=== PATIENT | female | born 1970 | race Caucasian/White ===

== ENCOUNTER 2020-11-10 11:46 | Emergency (ER) | payer BC, SELFPAY ==
--- NOTE | 2020-11-10 12:48 | ED_ITS ---
[facility] [place] Disposition Referrals: PCP,No [Primary Care Provider] - [facility] HPI - General Stated complaint: sinus problem - Related Data Home Medications Medication Instructions Recorded Confirmed paroxetine HCl 10 mg tablet 10 mg PO DAILY tab 04/20/18 08/25/18 cetirizine 10 mg tablet 10 mg PO DAILY 06/30/18 08/25/18 montelukast 10 mg tablet PO 30 Days #30 06/30/18 08/25/18 Allergies Allergy/AdvReac Type Severity Reaction Status Date / Time No Known Allergies Allergy Verified 08/25/18 15:51 [facility] History - Hepatitis A Screen Attestation statement:: This patient has been screened for Hepatitis A risk factors. 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: Reports:: Depression, Hypertension Other Surgeries: Yes: Cholecystectomy Amputation: No Fractures: No - Social History Smoking Status: Never smoker Alcohol Intake: never Substance Use Type: denies use Occupational Status: employed - Psychiatric History Pschychiatric History:: Reports:: Depression Family Hx:: Coronary Artery Disease
[2020-11-10 13:04] VITALS: BP 126/79; PULSE 89; RESP 18; TEMP 36.7; O2SAT 98; BMI 35.2
--- NOTE | 2020-11-10 13:11 | HMH.EDUTC ---
[facility] [place] Disposition Clinical Impression: Sinusitis Qualifiers: Sinusitis location: unspecified location Chronicity: acute Recurrence: non-recurrent Qualified Code(s): J01.90 - Acute sinusitis, unspecified Disposition: Home, Self-Care Condition on Discharge: Good Instructions: Sinusitis, DI for Sinusitis Additional Instructions: Drink plenty of fluids. Take tylenol for pain or fever. Take the medications as directed. Follow up with your regular doctor. GO TO THE ER FOR ANY WORSENING SYMPTOMS Prescriptions: predniSONE [Prednisone 20mg Tab] 20 mg PO BID 4 Days #8 tab Transmission Status: Received by [id number] Azithromycin [Z-Todd 250mg Tab*] 250 mg PO UD DOSE PK #6 tab Transmission Status: Received by [id number] Referrals: PCP,No [Primary Care Provider] - Time of Disposition: 13:13 Medical Decision Making - Medical Records Medical records reviewed: No: I reviewed the patient's medical records. - Isaias Inquiry Pt receiving controlled substance: No Vital Signs: 11/10/20 13:04 11/10/20 13:17 Temperature 98.1 F 98.1 F Temperature Source Oral Pulse Rate 89 Pulse Rate [Left] 89 Respiratory Rate 18 18 Blood Pressure 126/79 Blood Pressure [Right Arm] 126/79 Blood Pressure Mean [Right Arm] 94 Blood Pressure Source [Right Arm] Manual Cuff/ Doppler Blood Pressure Position [Right Arm] Sitting 02 Sat by Pulse Oximetry 98 Oxygen Delivery Method Room Air [facility] [place] HPI - General Stated complaint: sinus problem Time Seen by Provider: 11/10/20 13:11 Mode of Arrival: Ambulatory Source of Information: Patient Limitations: No Limitations Description of Symptoms (Recalled from Triage Doc. by RN): stuffy nose, congested x 2 days HEENT Symptoms (Recalled from RN notes): No Resp Symptoms (Recalled from RN notes): Yes Skin Symptoms (Recalled from RN notes): No MS Symptoms (Recalled from RN notes): No Functional Status (Recalled from RN notes): wnl - History of Present Illness Provider Complaint: She states that for the past 1 week she has had sinus congestion. She has a history of getting sinus infections kind of frequently. She denies any fever/chills/body aches. She denies a cough and chest congestion. - Related Data Home Medications Medication Instructions Recorded Confirmed paroxetine HCl 10 mg tablet 10 mg PO DAILY tab 04/20/18 08/25/18 cetirizine 10 mg tablet 10 mg PO DAILY 06/30/18 08/25/18 montelukast 10 mg tablet PO 30 Days #30 06/30/18 08/25/18 Previous Rx's Medication Instructions Recorded Azithromycin [Z-Todd 250mg Tab*] 250 mg PO UD DOSE PK #6 tab 11/10/20 predniSONE [Prednisone 20mg 20 mg PO BID 4 Days #8 tab 11/10/20 Tab] Allergies Allergy/AdvReac Type Severity Reaction Status Date / Time No Known Allergies Allergy Verified 11/10/20 13:08 - Worker's Comp Is this a Worker's Comp case?: No Is this an [facility] Worker's Comp?: No Is this a [place] Worker's Comp?: No [facility] History - Hepatitis A Screen Drug use history?: No High risk sexual behaviors?: No History of sexually transmitted infection?: No Currently employed?: No Childcare worker?: No Do you have indoor plumbing?: Yes Do you have electricity?: Yes Attestation statement:: This patient has been screened for Hepatitis A risk factors. I have reviewed the patient's past medical history: Yes 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: Reports:: Depression, Hypertension Other Surgeries: Yes: Cholecystectomy Amputation: No Fractures: No - Social History Smoking Status: Never smoker Alcohol Intake: never Substance Use Type: denies use Occupational Status: employed - Psychiatric History Pschychiatric History:: Reports:: Depression Family Hx:: Coronary Artery Disease ROS Obtained: Yes All systems reviewed & no additional complaints - Constitutional Constitutional: Reports system reviewed and no additional complaints, except as docu - Eyes Eyes: Reports system reviewed and no additional
[2020-11-10 13:17] VITALS: BP 126/79; PULSE 89; RESP 18; TEMP 36.7; O2SAT 98
== END 2020-11-10 13:18 | disposition home or self-care (01) ==
PROVIDERS: Emergency Provider Nurse Practitioner Family; PCP Nurse Practitioner
DX: J01.90 Acute sinusitis, unspecified (principal); I10 Essential (primary) hypertension; F33.1 Major depressive disorder, recurrent, moderate; Z79.899 Other long term (current) drug therapy
CPT/HCPCS: 99201

== ENCOUNTER → 2022-05-03 14:51 | Outpatient (POV) | payer BC, SELFPAY | PROVIDERS: Visit Provider Dermatology | DX: Z00.00 Encounter for general adult medical examination without abnormal findings (principal) ==

== ENCOUNTER 2022-05-27 16:36 | Emergency (ER) | payer BC, SELFPAY ==
[2022-05-27 16:58] VITALS: BP 147/88; PULSE 104; RESP 16; TEMP 36.9; O2SAT 96; BMI 36.0
--- NOTE | 2022-05-27 17:06 | HMH.EDUTC ---
[facility] [place] Disposition Clinical Impression: Strep throat Disposition: Home, Self-Care Condition on Discharge: Good Instructions: Strep Throat, DI for Strep Throat Additional Instructions: Drink plenty of fluids. Take tylenol or ibuprofen for pain or fever. Take the medications as directed. Follow up with your regular doctor. GO TO THE ER FOR ANY WORSENING SYMPTOMS Throw your tooth brush away and get a new one. Prescriptions: Benzonatate [Benzonatate 100mg cap] 100 mg PO TIDP PRN #30 cap PRN Reason: Cough Transmission Status: Received by [id number] Cefdinir [Omnicef 300mg Capsule] 300 mg PO BID #20 cap Transmission Status: Received by [id number] predniSONE [Prednisone 20mg Tab] 20 mg PO BID 3 Days #6 tab Transmission Status: [id number] Referrals: Naima Charles APRN [Primary Care Provider] - Time of Disposition: 17:26 Medical Decision Making - Medical Records Medical records reviewed: No: I reviewed the patient's medical records. - Isaias Inquiry Pt receiving controlled substance: No Vital Signs: 05/27/22 16:58 05/27/22 17:27 Temperature 98.4 F 98.4 F Temperature Source Oral Pulse Rate 104 H Pulse Rate [Right Radial] 104 H Respiratory Rate 16 16 Blood Pressure 147/88 H Blood Pressure [Right Arm] 147/88 H Blood Pressure Mean [Right Arm] 107 Blood Pressure Source [Right Arm] Automatic Cuff Blood Pressure Position [Right Arm] Sitting 02 Sat by Pulse Oximetry 96 Oxygen Delivery Method Room Air - Lab Data Lab results reviewed: Yes: I reviewed the patient's lab results. Lab Results 05/27/22 17:00: Strep Scn Rapid Clinic Positive A [facility] [place] HPI - General Stated complaint: stuffy, allergies Time Seen by Provider: 05/27/22 17:06 Mode of Arrival: Ambulatory Source of Information: Patient Limitations: No Limitations Description of Symptoms (Recalled from Triage Doc. by RN): Pt reports she is stuffy , feels like its a little hard to swallow, sore throat. HEENT Symptoms (Recalled from RN notes): Yes (nasal congestion, sore throat) Resp Symptoms (Recalled from RN notes): No Skin Symptoms (Recalled from RN notes): No MS Symptoms (Recalled from RN notes): No Functional Status (Recalled from RN notes): n/a - History of Present Illness Provider Complaint: She c/o sore throat, chills, body aches and feeling bad for the past 2 days. - Related Data Home Medications Medication Instructions Recorded Confirmed paroxetine HCl 10 mg tablet 10 mg PO DAILY tab 04/20/18 10/03/21 cetirizine 10 mg tablet 10 mg PO DAILY 06/30/18 10/03/21 montelukast 10 mg tablet PO 30 Days #30 06/30/18 10/03/21 estradiol 0.1 mg/24 hr semiweekly 1 patch TRANSDERMA each 10/03/21 10/03/21 transdermal patch progesterone micronized 100 mg 100 mg PO cap 10/03/21 10/03/21 capsule Previous Rx's Medication Instructions Recorded Benzonatate [Benzonatate 100mg 100 mg PO TIDP PRN #30 cap 05/27/22 cap] Cefdinir [Omnicef 300mg Capsule] 300 mg PO BID #20 cap 05/27/22 predniSONE [Prednisone 20mg 20 mg PO BID 3 Days #6 tab 05/27/22 Tab] Allergies Allergy/AdvReac Type Severity Reaction Status Date / Time No Known Allergies Allergy Verified 10/03/21 15:21 - Worker's Comp Is this a Worker's Comp case?: No [facility] History - Hepatitis A Screen Attestation statement:: This patient has been screened for Hepatitis A risk factors. I have reviewed the patient's past medical history: Yes 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: Reports:: Depression, Hypertension Other Surgeries: Yes: Cholecystectomy, Colonoscopy Amputation: No Fractures: No - Social History Smoking Status: Never smoker Alcohol Intake: never Substance Use Type: denies use Occupational Status: employed - Psychiatric History Pschychiatric History:: Reports:: Depression Family Hx:: Coronary Artery Disease ROS Obtained: Yes All systems reviewed & no additional complaints -
[2022-05-27 17:09] LABS: UTC Strep Screen (Rapid) Positive (Negative)
[2022-05-27 17:27] VITALS: BP 147/88; PULSE 104; RESP 16; TEMP 36.9
== END 2022-05-27 17:40 | disposition home or self-care (01) ==
PROVIDERS: Emergency Provider Nurse Practitioner Family; PCP Nurse Practitioner
DX: J02.0 Streptococcal pharyngitis (principal)
CPT/HCPCS: 87880; 99212; C9803; G0463; U0003; U0005

== ENCOUNTER 2022-10-07 09:28 | Emergency (ER) | payer BC, SELFPAY ==
[2022-10-07 11:40] VITALS: BP 131/69; PULSE 73; RESP 20; TEMP 36.7; O2SAT 98; BMI 35.0
--- NOTE | 2022-10-07 11:49 | EXP.UTC ---
Discharge Plan Disposition Patient Disposition: Home, Self-Care Condition: Good Prescriptions Prescriptions: New azithromycin [Zithromax] 250 mg tablet 250 mg PO UD DOSE PK Qty: 6 0RF Rx Instructions: Take two (2) tablets today, then one (1) tablet days #2 thru #5 benzonatate [benzonatate] 100 mg capsule 100 mg PO TIDP PRN (Reason: Cough) Qty: 30 0RF methylprednisolone 4 mg Tablets,Dose Pack 4 mg PO DIRECTED Qty: 21 0RF No Action paroxetine HCl [Paxil] 10 mg tablet 10 mg PO DAILY montelukast 10 mg tablet PO 30 Days Qty: 30 cetirizine [Zyrtec] 10 mg tablet 10 mg PO DAILY progesterone micronized 100 mg capsule 100 mg PO estradiol 0.1 mg/24 hr patch semiweekly 1 patch TRANSDERMA prednisone 20 MG tablet 20 mg PO BID 3 Days Qty: 6 0RF cefdinir 300 MG capsule 300 mg PO BID Qty: 20 0RF benzonatate 100 MG capsule 100 mg PO TIDP PRN (Reason: Cough) Qty: 30 0RF Referrals Follow up/Referrals: Preethi Melendrez PA [Primary Care Provider] - See instructions Activity Restrictions/Add. Instructions Additional Instructions/Restrictions: Drink plenty of fluids. Take tylenol or ibuprofen for pain or fever. Take the medications as directed. Follow up with your regular doctor. GO TO THE ER FOR ANY WORSENING SYMPTOMS Clinical Impressions Clinical Impression: Bronchitis, Sinusitis Instructions Patient Instructions: Sinusitis, DI for Sinusitis Discharge ED Provider: Elvis Kc [facility] [place] HPI General Stated complaint: congestion Time Seen by Provider: 10/07/22 11:49 History of Present Illness Provider Complaint: She states that she has had cough, chills, sore throat, and sinus congestion for the past 2 days, Related Data Home Medications Medication Instructions Recorded Confirmed paroxetine HCl 10 mg tablet (Paxil) 10 mg PO DAILY 04/20/18 10/03/21 cetirizine 10 mg tablet (Zyrtec) 10 mg PO DAILY 06/30/18 10/03/21 montelukast 10 mg tablet PO 30 days ##30 06/30/18 10/03/21 estradiol 0.1 mg/24 hr semiweekly 1 patch transdermal 10/03/21 10/03/21 transdermal patch progesterone micronized 100 mg 100 mg PO 10/03/21 10/03/21 capsule Previous Rx's Medication Instructions Recorded benzonatate 100 mg capsule 100 mg PO TIDP PRN Cough #30 caps 05/27/22 cefdinir 300 mg capsule 300 mg PO BID #20 caps 05/27/22 prednisone 20 mg tablet 20 mg PO BID 3 days #6 tabs 05/27/22 azithromycin 250 mg tablet 250 mg PO UD DOSE PK #6 tabs 10/07/22 (Zithromax) benzonatate 100 mg capsule 100 mg PO TIDP PRN Cough #30 caps 10/07/22 methylprednisolone 4 mg tablets in 4 mg PO DIRECTED #21 tabs 10/07/22 a dose pack Allergies Allergy/AdvReac Type Severity Reaction Status Date / Time No Known Allergies Allergy Verified 10/03/21 15:21 [facility] PFS 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 (Updated 10/07/22 @ 11:57 by Elvis Kc APRN) Anxiety Hyperlipidemia Urinary tract infection Surgical History (Updated 10/07/22 @ 11:49 by Smiley Villar RN) History of cholecystectomy Social History (Updated 10/07/22 @ 11:49 by Smiley Villar RN) Smoking Status: Never smoker second hand exposure: No alcohol intake: never substance use type: denies use current occupational status: employed Travel in the last 8 weeks: None ROS Obtained: Yes All systems reviewed & no additional complaints except as documented Constitutional Constitutional: Reports chills and Reports fever(s) Eyes Eyes: Denies eye discharge ENT Ears, Nose, Mouth, and Throat: Reports as per HPI Cardiovascular Cardiovascular: Denies chest pain Respiratory Respiratory: Denies chest congestion and Reports cough Gastrointestinal Gastrointestingal: Reports nausea; Denies abdominal pain, constipation, cramping, diarrhea or vomiting Musculoskeletal Musculoskeletal: Denies arthralgias Integumentary/Breasts Skin/Breast: Denies rash Neurologic Neurologic: Denies paresthesias
[2022-10-07 11:50] VITALS: BP 131/69; PULSE 73; RESP 20; TEMP 36.7; O2SAT 98
[2022-10-07 12:09] LABS: Adenovirus,PCR Not Detected (NotDetected); Bordetella Pertussis Not Detected (NotDetected); Chlamydophila Pneumoniae, PCR Not Detected (NotDetected); Coronavirus 19, PCR Not Detected (NotDetected); Coronavirus 229E Not Detected (NotDetected); Coronavirus NL63 Not Detected (NotDetected); Coronavirus OC43 Not Detected (NotDetected); Coronovirus HKU1,PCR Not Detected (NotDetected); Human Metapneumovirus Not Detected (NotDetected); Influenza A, PCR Not Detected (NotDetected); Influenza AH1, 2009 Not Detected (NotDetected); Influenza AH1, PCR Not Detected (NotDetected); Influenza AH3,PCR Not Detected (NotDetected); Influenza B, PCR Not Detected (NotDetected); Mycoplasma Pneumoniae, PCR Not Detected (NotDetected); Parainfluenza 1, PCR Not Detected (NotDetected); Parainfluenza 2, PCR Not Detected (NotDetected); Parainfluenza 3, PCR Not Detected (NotDetected); Parainfluenza 4, PCR Not Detected (NotDetected); Respiratory Syncytial Virus Not Detected (NotDetected); Rhinovirus/Enterovirus Not Detected (NotDetected)
== END 2022-10-07 12:02 | disposition home or self-care (01) ==
PROVIDERS: Emergency Provider Nurse Practitioner Family; PCP Physician Assistant
DX: J40 Bronchitis, not specified as acute or chronic (principal); F32.9 Major depressive disorder, single episode, unspecified
CPT/HCPCS: 87581; 87632; 87798; 99212; C9803; G0463; U0003; U0005

== ENCOUNTER → 2023-05-15 11:34 | Outpatient (CLI) | payer BC, SELFPAY ==
[2023-05-15 12:05] LABS: Glucose,Random 117 mg/dL (74-100)
[2023-05-15 12:07] LABS: Hemoglobin A1C 5.8 % (4.0-6.0)
== END ==
PROVIDERS: PCP Physician Assistant; Visit Provider Physician Assistant
DX: R73.9 Hyperglycemia, unspecified (principal)
CPT/HCPCS: 36415; 82947; 83036

== ENCOUNTER 2023-09-16 12:54 | Emergency (ER) | payer BC, SELFPAY ==
[2023-09-16 13:00] VITALS: BP 120/74; PULSE 61; RESP 19; TEMP 37.2; O2SAT 98; BMI 34.7
--- NOTE | 2023-09-16 13:11 | EXP.UTC ---
Discharge Plan Disposition Patient Disposition: Home, Self-Care Condition: Good Prescriptions Prescriptions: No Action paroxetine HCl [Paxil] 10 mg tablet 10 mg PO DAILY montelukast 10 mg tablet PO 30 Days Qty: 30 cetirizine [Zyrtec] 10 mg tablet 10 mg PO DAILY progesterone micronized 100 mg capsule 100 mg PO estradiol 0.1 mg/24 hr patch semiweekly 1 patch TRANSDERMA prednisone 20 MG tablet 20 mg PO BID 3 Days Qty: 6 0RF cefdinir 300 MG capsule 300 mg PO BID Qty: 20 0RF benzonatate 100 MG capsule 100 mg PO TIDP PRN (Reason: Cough) Qty: 30 0RF azithromycin [Zithromax] 250 mg tablet 250 mg PO UD DOSE PK Qty: 6 0RF Rx Instructions: Take two (2) tablets today, then one (1) tablet days #2 thru #5 benzonatate [benzonatate] 100 mg capsule 100 mg PO TIDP PRN (Reason: Cough) Qty: 30 0RF methylprednisolone 4 mg Tablets,Dose Pack 4 mg PO DIRECTED Qty: 21 0RF Referrals Follow up/Referrals: Preethi Melendrez PA [Primary Care Provider] - See instructions Activity Restrictions/Add. Instructions Additional Instructions/Restrictions: restart eye dops if worsen return Clinical Impressions Clinical Impression: Eye redness Instructions Patient Instructions: DI for Eye Allergic Reaction Discharge ED Provider: Triny ([facility] [place] HPI General Stated complaint: left eye redness Mode of Arrival: Ambulatory Source of Information: Patient Limitations: No Limitations Time Seen by Provider: 09/16/23 13:11 HEENT Symptoms (Recalled from RN notes): Yes Resp Symptoms (Recalled from RN notes): No Skin Symptoms (Recalled from RN notes): No GI/ Symptoms (Recalled from RN notes): No MS Symptoms (Recalled from RN notes): No Card Symptoms (Recalled from RN notes): No Other (Recalled from RN notes): No History of Present Illness Provider Complaint: 52 yr old female presents for rt eye redness, pt states no drainage. pt states she thinks she got makeup in it a couple days ago. pt states she wants it checked because she is going to be around kids today Related Data Home Medications Medication Instructions Recorded Confirmed paroxetine HCl 10 mg tablet (Paxil) 10 mg PO DAILY 04/20/18 10/03/21 cetirizine 10 mg tablet (Zyrtec) 10 mg PO DAILY 06/30/18 10/03/21 montelukast 10 mg tablet PO 30 days ##30 06/30/18 10/03/21 estradiol 0.1 mg/24 hr semiweekly 1 patch transdermal 10/03/21 10/03/21 transdermal patch progesterone micronized 100 mg 100 mg PO 10/03/21 10/03/21 capsule Previous Rx's Medication Instructions Recorded benzonatate 100 mg capsule 100 mg PO TIDP PRN Cough #30 caps 05/27/22 cefdinir 300 mg capsule 300 mg PO BID #20 caps 05/27/22 prednisone 20 mg tablet 20 mg PO BID 3 days #6 tabs 05/27/22 azithromycin 250 mg tablet 250 mg PO UD DOSE PK #6 tabs 10/07/22 (Zithromax) benzonatate 100 mg capsule 100 mg PO TIDP PRN Cough #30 caps 10/07/22 methylprednisolone 4 mg tablets in 4 mg PO DIRECTED #21 tabs 10/07/22 a dose pack Allergies Allergy/AdvReac Type Severity Reaction Status Date / Time No Known Allergies Allergy Verified 09/16/23 13:15 [facility] Disclaimer: The information contained in this section may have been updated after the patient was seen, as this information can be updated by other users. 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
[2023-09-16 13:19] VITALS: BP 120/74; PULSE 61; RESP 19; TEMP 37.2; O2SAT 98
== END 2023-09-16 13:19 | disposition home or self-care (01) ==
PROVIDERS: Emergency Provider Nurse Practitioner Family; PCP Physician Assistant
DX: H57.89 Other specified disorders of eye and adnexa (principal); E78.5 Hyperlipidemia, unspecified; F41.9 Anxiety disorder, unspecified
CPT/HCPCS: 99212; 99213; 99214; G0463

== ENCOUNTER 2024-01-11 14:00 | Outpatient (RCR) | payer BC, SELFPAY ==
--- NOTE | 2023-12-04 12:14 | HMH.PTOPEV ---
PT Outpatient Evaluation Rehab PT Outpatient Evaluation Start: 12/04/23 10:54 Freq: Status: Active Protocol: Document 12/04/23 10:54 MARY LOU (Rec: 12/04/23 12:14 MARY LOU [id number]) E-signed By Danica Oseguera, PT Outpatient Therapy Subjective History Subjective History Pt is a 52 y/o female who reports onset of left-sided low back pain in mid September of 2023. Pt states I lugged a heavy load of shingles several times and moved a big ladder. Pt reports she initially tried resting and using ice/heat for a few days without improvement in symptoms. Pt states she then went on a cruise and got Covid -19 which delayed her seeing a doctor regarding LBP. Pt reports she went to the chiropractor a couple times which provided temporary relief. Pt denies having recent imaging of the low back or hips. Pt reports she was given stretches by the chiropractor which seemed to causes pins/neeedles sensations along her central low back that was brief in nature. Pt denies LE symptoms, b/b dysfunction or numbness/ tingling currently. Pt reports her doctor also gave her a few simple exercises which she states feels good during but make pain worse the next 2 days. Pt reports she was prescribed muscle relaxers she takes occasionally which seem to help with pain. Pt reports pain is centralized to the left low back and often feels tight into her mid back and into her hip. Pt reports pain is aggravated by prolonged sitting, driving and bending/ lifting. Pt reports tightness of the hips and central low back. 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: Hyperlipidemia, sinus/allergy, abdominal hernia, gall bladder problems New diagnosis of cancer in past 12 No months? Chief Complaint Pain Symptom Type Ache,Dull,Burning Symptoms Relieved By Heat,Ice,OTC Meds Symptoms Aggravated By Sitting,Bending/Stooping Prior Functional Limitations None Current Functional Limitations Lifting,Driving,Sitting, Squatting,Bending/Stooping Symptom Description Intermittent Level of pain today (0-10) 4 Pain scale - at its best (0-10) 0 Pain scale - at its worst (0-10) 7 Lumbopelvic Eval Posture Thoracic Spine Posture Standing Position Neutral Lumbar Spine Posture Standing Position Increased Lordosis Palapation tenderness left lumbar spinal tenderness Yes paraspinal tenderness Yes Lumbar/Sacral Palpation Findings Tenderness Accessory Movement L-spine Vertebrae Accessory Movements Central P/A [place] that Elicit Symptoms L2 bilateral L3 bilateral L4 bilateral L5 bilateral S1 bilateral Range of Motion Lumbar Spine Active Flexion Range of 90 Motion (degrees) Lumbar Spine Active Extension Range of 10 Motion (degrees) Left Lumbar Spine Lateral Flexion Active 15 Range of Motion (degrees) Right Lumbar Spine Lateral Flexion 10 Active Range of Motion (degrees) Manual Muscle Test Left Knee Extension Strength Grade 5 Normal Knee Flexion Strength Grade 5 Normal Hip Flexion Strength Grade 4 Good Hip Abduction Strength Grade 4 Good Hip Adduction Strength Grade 4 Good Hip Extension Strength Grade 4- Good- Gastronemius/Soleus Strength Grade 5 Normal Altered Sensation Bilateral Comment equal and intact to light touch sensation Special Tests Hip Toby (VERA) Test Negative Left Hip Piriformis Test Negative Left Sciatic Nerve Tension Test Negative Left Unilateral Straight Leg Raise (Lasegue) Negative Left Test Sacroiliac Joint Compression Test Negative Left Sacroiliac Joint Distraction Test Negative Left Hip/Knee Eval ROM left Hip External Rotation Active Range of 45 Motion (degrees) Hip Internal Rotation Active Range of 45 Motion (degrees) Oswestry Index Section 1 Pain Intensity The pain comes and goes and is moderate Section 2 Personal Care (Washing,Dresing) increase the pain, but I manage not to change my way of doing it Section 3 Lifting lifting heavy weights off the floor, but I can manage light to medium Section 4 Walking I have some pain when walking but it does not increase with distance Section 5 Sitting Pain prevents me from sitting for more than 1/2 hour Section 6 Standing I have some pain on standing, but it does not increase with time Section 7 Sleeping I get pain in bed, but it does not prevent me from sleeping well Section 8 Social Life Pain has restricted my social life and I do not go out often Section 9 Traveling Pain restricts me to short necessary journeys under 30 minutes Section 10 Changing Degreee of Pain My pain seems to be getting better, but improvement is slow Score and Risk Level Oswestry Sc 23 Oswestry Risk Level Moderate Disability Outpatient Therapy Assessment Impairments Problems/Impairmments Palpation Tenderness,Impaired Range of Motion,Impaired Strength,Impaired Lifting, Impaired Household Care, Impaired Bending,Subjective C/ O Pain,Impaired Self Care/Self Management Prognosis Rehab Potential Good Clinical Impression Consistent with Diagnosis Yes Short Term Goals Number of Weeks 3 Decrease Subjective C/O Pain Yes: Improve pain at worst to 5/10 to improve overall QOL Improve Self Care/Self Management Yes Patient to be Ind w/ HEP Yes Steam Blocker Goals Number of Weeks 6 Increase Range of Motion Yes: Improve lumbar ext and LF AROM to 20 Increase Strength Yes: Improve hip strength to 4 +-5/5 grossly to assist with function Restore Ability to Lift Objects to Waist Yes: 15# with proper mechanics Level to assist with ADLs/prevent re-injury Improve Oswestry Score Yes: Improve score to 15 to improve overall QOL Decrease Subjective C/O Pain Yes: Improve pain at worst to 3/10 to improve overall QOL Outpatient Therapy Plan of Care Treatment Plan May Include Therapeutic Exercise Including Home Yes Exercise Program Manual Therapy Techniques Yes Neuromuscular Re-education Yes Therapeutic Activities to Return to Yes Previous Functional/Work Level ADL/Self Care Education Yes Mechanical Traction Yes Dry Needling Yes Thermal Modalities Yes Electrical Stimulation Yes Ultrasound/Phonophoresis Yes Iontophoresis Yes Massage Yes Eval/Re-Eval Yes Frequency Times per week 2 Duration Number of Weeks 4-6 Addendums This patient is a candidate for social No or vocational rehab? Patient/Guardian verbally acknowledges Yes understanding of treatment program and consents to further treatment? Patient/Guardian verbally acknowledges Yes understanding of diagnosis, prognosis and goals for treatment? Eval Complexity PT Charges 51878 - Low Complexity Shoulder/Elbow Eval Shoulder Objective Measurements Elbow Objective Measurements PHYSICIAN CERTIFICATION: I certify the specified therapy services for Coco Bentley are required, authorized, and reviewed every 30 days.
--- NOTE | 2024-01-02 09:58 | HMH.RHREAS ---
Rehab Reassessment Rehab OP Re-assessment Start: 12/04/23 10:54 Freq: Status: Active Protocol: Document 01/02/24 09:16 GIGICARMEN (Rec: 01/02/24 09:58 GIGICARMEN [id number]) E-signed By Danica Oseguera, PT Oswestry Index Section 1 Pain Intensity The pain comes and goes and is moderate Section 2 Personal Care (Washing,Dresing) increase the pain and I find it necessary to change my way of doing it Section 3 Lifting lifting heavy weights off the floor, but I can manage light to medium Section 4 Walking I have some pain when walking but it does not increase with distance Section 5 Sitting Pain prevents me from sitting for more than one hour Section 6 Standing I cannot stand more than 1 hour without increasing pain Section 7 Sleeping I get pain in bed, but it does not prevent me from sleeping well Section 8 Social Life Pain has no significant effect on my social life apart from limiting Section 9 Traveling I get extra pain while traveling, but it does not compel me to seek al Section 10 Changing Degreee of Pain My pain fluctuates, but overall is definitely getting better Score and Risk Level Oswestry Sc 20 Oswestry Risk Level Moderate Disability Rehab Re-assessment Subjective Subjective Pt reports she feels ~70% improved since starting PT. Pt reports intermittent left- sided low back pain rated 4-5/ 10 on VAS at worst described as tenderness and tightness. Pt reports she is still being careful to not bend or lift in fear of worsening her back pain. Pt reports she is able to sit and travel in the car longer. Pt reports compliance with HEP. Objective Objective Notes Palpation: L3-4 SP Lumbar AROM: flex 90, ext 15, RLF 18, LLF 30 LE and core MMT: 4/5 grossly Assessment Progress Assessment Progressing as Expected Assessment Notes Pt has attended 8 PT visits consisting of aerobic exercise , lumbar mobility, LE stretching/strengthening, core strengthening, manual therapy and modalities with good tolerance. Pt demonstrated improved lumbar AROM, tenderness to palpation and slight improvement in ANTONINA score this date compared to the initial evaluation. Pt continues to demonstrate weakness of the hips/core and reports fear avoidance behavior with lifting and bending movement patterns. Pt would continue to benefit from skilled PT to further improve subjective report of pain, lumbar ext/LF AROM, hip/core strength, lifting mechanics and functional activity tolerance to assist with return to PLOF. Patient goals met ST/3 Goals Not Met LTG Revised Goals n/a Plan Plan Continue initial POC. Incorporate lumbar mobilizations, functional core strengthening, and lifting mechanics into treatment. Frequency of Therapy 2x/week Duration of therapy 2-3 more weeks Time and Billing Re-Eval Time 18 Re-Eval Billing Units 1 PHYSICIAN CERTIFICATION: I certify the specified therapy services for Coco Bentley are required, authorized, and reviewed every 30 days.
== END 2024-01-11 15:20 | disposition home or self-care (01) ==
LOC: PT 14:00
PROVIDERS: PCP Physician Assistant; Visit Provider Physician Assistant
DX: G57.02 Lesion of sciatic nerve, left lower limb (principal); M62.830 Muscle spasm of back
CPT/HCPCS: 97010; 97014; 97110; 97140; 97163; 97164; 97530; G0283

== ENCOUNTER 2024-03-15 10:58 | Emergency (ER) | payer BC, SELFPAY ==
[2024-03-15 11:55] VITALS: BP 127/75; PULSE 71; RESP 21; TEMP 36.6; O2SAT 98; BMI 35.4
--- NOTE | 2024-03-15 12:28 | ED_ITS ---
Discharge Plan Disposition Patient Disposition: Home, Self-Care Condition: Good Prescriptions Prescriptions: New azithromycin [Zithromax Z-Todd] 250 mg tablet See Rx Instructions .ROUTE .COMPLEX 5 Days Qty: 6 0RF Rx Instructions: For 250 mg dose pack: take 500 mg today (day 1), then 250 mg for 4 days (days 2-5) methylprednisolone [Medrol (Todd)] 4 mg tablets,dose pack See Rx Instructions .Route .COMPLEX 6 Days Qty: 21 0RF Rx Instructions: taper pack; polymyxin B sulf-trimethoprim 10,000 unit- 1 mg/mL drops 2 drp ophthalmic (eye) Q6H 7 Days Qty: 10 0RF Rx Instructions: left eye while awake; do not exceed 6 doses in 24 hours No Action paroxetine HCl [Paxil] 10 mg tablet 10 mg PO DAILY montelukast 10 mg tablet 10 mg PO DAILY 30 Days Qty: 30 montelukast 10 mg tablet 10 mg PO DAILY spironolactone 50 mg tablet 50 mg PO DAILY progesterone micronized 100 mg capsule 100 mg PO DAILY Referrals Follow up/Referrals: Preethi Melendrez PA [Primary Care Provider] - See instructions Clinical Impressions Clinical Impression: Sinusitis, Conjunctivitis Instructions Patient Instructions: DI for Sinusitis, Sinusitis, DI for Conjunctivitis Discharge ED Provider: Naima Caro [facility] General Stated complaint: possible pink eye sinus congestion Mode of Arrival: Ambulatory Source of Information: Patient Limitations: No Limitations Time Seen by Provider: 03/15/24 12:28 Description of Symptoms (Recalled from Triage Doc. by RN): PATIENT C/O RED AND ITCHY RED EYE, SINUS PRESSURE, AND CONGESTION SINCE YESTERDAY HEENT Symptoms (Recalled from RN notes): Yes Resp Symptoms (Recalled from RN notes): No Skin Symptoms (Recalled from RN notes): No MS Symptoms (Recalled from RN notes): No Functional Status (Recalled from RN notes): WNL History of Present Illness Provider Complaint: Patient states that she has been having sinus pain and pressure on and off for two weeks but has continued to get worse over the last couple of days and yesterday she woke up with her left eye matted shut and she has been having redness and drainage thinks she may have pink eye too Related Data Home Medications Medication Instructions Recorded Confirmed paroxetine HCl 10 mg tablet (Paxil) 10 mg PO DAILY 04/20/18 03/15/24 montelukast 10 mg tablet 10 mg PO DAILY 30 days ##30 06/30/18 03/15/24 montelukast 10 mg tablet 10 mg PO DAILY 03/15/24 03/15/24 progesterone micronized 100 mg 100 mg PO DAILY 03/15/24 03/15/24 capsule spironolactone 50 mg tablet 50 mg PO DAILY 03/15/24 03/15/24 Previous Rx's Medication Instructions Recorded azithromycin 250 mg tablet See Rx Instructions PO .COMPLEX 5 03/15/24 (Zithromax Z-Todd) days #6 tabs methylprednisolone 4 mg tablets in See Rx Instructions .Route 03/15/24 a dose pack (Medrol (Todd)) .COMPLEX 6 days #21 tabs polymyxin B sulfate 10,000 2 drp ophthalmic (eye) Q6H 7 days 03/15/24 unit-trimethoprim 1 mg/mL eye drops #10 mL Allergies Allergy/AdvReac Type Severity Reaction Status Date / Time No Known Allergies Allergy Verified 09/16/23 13:15 Worker's Comp Is this a Worker's Comp case?: [facility] Disclaimer: The information contained in this section may have been updated after the p atient was seen, as this information can be updated by other users. 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) History of cholecystectomy Social History Smoking Status: Never smoker second hand exposure: No alcohol intake: never substance use type: denies use current occupational status: employed Travel in the last 8 weeks: None ROS Obtained: Yes All systems reviewed & no additional complaints except as documented and Yes Systems reviewed as appropriate & no additional complaints except as documented Constitutional Constitutional: Reports system reviewed and no additional complaints, except as documented and Reports as per HPI Eyes Eyes: Reports system reviewed and no additional complaints, except as documented, Reports as per HPI, Reports eye discharge and Reports irritation ENT Ears, Nose, Mouth, and Throat: Reports system reviewed and no additional complaints, except as documented, Reports as per HPI, Reports sinus pain and Reports sinus pressure Cardiovascular Cardiovascular: Reports system reviewed and no additional complaints, except as documented and Reports as per HPI Respiratory Respiratory: Reports system reviewed and no additional complaints, except as documented and Reports as per HPI Gastrointestinal Gastrointestingal: Reports system reviewed and no additional complaints, except as documented and as per HPI Physical Exam General General appearance: alert and in no apparent distress Eye Eye exam: Present conjunctival redness (left) and discharge (left with matting particles noted in lashes) ENT ENT exam: Present mucous membranes moist Expanded ENT Exam Nose exam: Present sinus tenderness Respiratory Respiratory exam: Present normal lung sounds bilaterally; Absent respiratory distress or wheezes Cardiovascular Cardiovascular exam: Present regular rate, normal rhythm and normal heart sounds Neurological Exam Neurological exam: Present alert, oriented X3 and normal gait Medical Decision Making Isaias Inquiry Pt receiving controlled substance: No Isaias was queried for this patient: No Vital Signs: 03/15/24 11:55 Temperature 97.9 F Temperature Source Oral Pulse Rate [Left Brachial] 71 Respiratory Rate 21 Blood Pressure [Left Arm] 127/75 Blood Pressure Mean [Left Arm] 92 Blood Pressure Source [Left Arm] Automatic Cuff Blood Pressure Position [Left Arm] Sitting 02 Sat by Pulse Oximetry 98 Oxygen Delivery Method Room Air Medical Decision Narrative: Patient states she has taken azithromycin and Medrol in the past without complications or reactions
[2024-03-15 12:36] VITALS: BP 127/75; PULSE 71; RESP 21; TEMP 36.6; O2SAT 98
== END 2024-03-15 12:34 | disposition home or self-care (01) ==
PROVIDERS: Emergency Provider Nurse Practitioner; PCP Physician Assistant
DX: J01.90 Acute sinusitis, unspecified (principal); H10.32 Unspecified acute conjunctivitis, left eye
CPT/HCPCS: 99212; 99214; G0463

== ENCOUNTER 2024-10-13 13:15 | Emergency (ER) | payer BC, SELFPAY ==
--- NOTE | 2024-10-13 13:33 | EXP.UTC ---
Discharge Plan Disposition Patient Disposition: Home, Self-Care Condition: Good Prescriptions Prescriptions: New azithromycin [Zithromax] 250 mg tablet 250 mg PO UD DOSE PK Qty: 6 0RF Rx Instructions: Take two (2) tablets today, then one (1) tablet days #2 thru #5 benzonatate 100 mg capsule 100 mg PO TIDP PRN (Reason: Cough) Qty: 30 0RF methylprednisolone 4 mg Tablets,Dose Pack 4 mg PO DIRECTED 6 Days Qty: 21 0RF Rx Instructions: Take 1 pack as directed for 6 days No Action montelukast 10 mg tablet 10 mg PO DAILY Patient Comments: TAKE 1 TABLET BY MOUTH ONCE DAILY paroxetine HCl 10 mg tablet 10 mg PO DIRECTED Patient Comments: TAKE 1 TABLET BY MOUTH ONCE DAILY rosuvastatin 20 mg tablet 20 mg PO DAILY Patient Comments: TAKE 1 TABLET BY MOUTH ONCE DAILY FOR 90 DAYS spironolactone 50 mg tablet PO Patient Comments: TAKE 1 TABLET BY MOUTH THREE TIMES DAILY progesterone micronized 100 mg capsule PO Patient Comments: TAKE 1 CAPSULE BY MOUTH AT BEDTIME diclofenac sodium 1 % gel 4 g topical QID PRN (Reason: pain ) 30 Days Qty: 100 2RF Rx Instructions: apply to single, ankle, foot; for foot includes sole/toes/top of foot estradiol [Vagifem] 10 mcg tablet vaginal Patient Comments: INSERT 1 TABLET IN VAGINA TWICE A WEEK naproxen [EC-Naprosyn] 500 mg tablet,delayed release (DR/EC) 500 mg PO BID Referrals Follow up/Referrals: Preethi Melendrez PA [Primary Care Provider] - See instructions Activity Restrictions/Add. Instructions Additional Instructions/Restrictions: Drink plenty of fluids. Take tylenol or ibuprofen for pain or fever. Take the medications as directed. Follow up with your regular doctor. GO TO THE ER FOR ANY WORSENING SYMPTOMS Clinical Impressions Clinical Impression: Sinusitis Instructions Patient Instructions: Sinusitis, DI for Sinusitis Print Language Print Language: Tajik Discharge ED Provider: Elvis Kc [facility] HPI General Stated complaint: Sinus pressure Time Seen by Provider: 10/13/24 13:31 Related Data Home Medications ?Medication ?Instructions ?Recorded ?Confirmed montelukast 10 mg tablet 10 mg PO DAILY 08/12/24 10/13/24 paroxetine HCl 10 mg tablet 10 mg PO DIRECTED 08/12/24 10/13/24 progesterone micronized 100 mg mg PO 08/12/24 09/02/24 capsule rosuvastatin 20 mg tablet 20 mg PO DAILY 08/12/24 10/13/24 spironolactone 50 mg tablet mg PO 08/12/24 08/12/24 estradiol 10 mcg vaginal tablet mcg vaginal 09/02/24 09/02/24 (Vagifem) naproxen 500 mg tablet,delayed 500 mg PO BID 09/02/24 09/02/24 release (EC-Naprosyn) Previous Rx's ?Medication ?Instructions ?Recorded diclofenac sodium 1 % topical gel 4 g topical QID PRN pain 30 days 08/12/24 #100 grams azithromycin 250 mg tablet 250 mg PO UD DOSE PK #6 tabs 10/13/24 (Zithromax) benzonatate 100 mg capsule 100 mg PO TIDP PRN Cough #30 caps 10/13/24 methylprednisolone 4 mg tablets in 4 mg PO DIRECTED 6 days #21 tabs 10/13/24 a dose pack Allergies Allergy/AdvReac Type Severity Reaction Status Date / Time No Known Allergies Allergy Verified 09/02/24 14:10 [facility] Disclaimer: The information contained in this section may have been updated after the patient was seen, as this information can be updated by other users. Surgical History Hx of cholecystectomy Family History Brother Hypertension Social History Smoking Status: Never smoker alcohol intake: never current occupational status: employed ROS Obtained: Yes All systems reviewed & no additional complaints except as documented Constitutional Constitutional: Reports poor appetite Eyes Eyes: Reports system reviewed and no additional complaints, except as documented ENT Ears, Nose, Mouth, and Throat: Reports as per HPI Cardiovascular Cardiovascular: Reports system reviewed and no additional complaints, except as documented and Denies chest pain Respiratory Respiratory: Denies shortness of breath, Denies chest congestion, Reports cough, Denies stridor and Denies wheezing Gastrointestinal Gastrointestingal: Reports system reviewed and no additional complaints, except as documented; Denies abdominal pain, diarrhea or vomiting Musculoskeletal Musculoskeletal: Reports system reviewed and no additional complaints, except as documented and Denies arthralgias Integumentary/Breasts Skin/Breast: Reports system reviewed and no additional complaints, except as documented and Denies rash Neurologic Neurologic: Denies paresthesias Allergic/Immunologic Allergic/Immunologic: Denies wheezing Physical Exam General General appearance: alert and in no apparent distress Eye Eye exam: Present normal appearance, PERRL and EOMI ENT ENT exam: Present mucous membranes moist and normal external ear exam Expanded ENT Exam External ear exam: Present normal external inspection TM/Canal exam: Bilateral TM: erythema and bulging Nose exam: Absent sinus tenderness Nasal speculum exam: Bilateral: normal Mouth exam: Present normal external inspection; Absent drooling Teeth exam: Present normal inspection Throat exam: Present tonsillar erythema and tonsillomegaly Neck Neck exam: Present normal inspection, full ROM and trachea midline; Absent tenderness, lymphadenopathy or thyromegaly Chest Chest inspection: Present normal inspection and symmetric chest wall rise; Absent tenderness or rash Respiratory Respiratory exam: Present normal lung sounds bilaterally; Absent respiratory distress, wheezes, stridor or accessory muscle use Cardiovascular Cardiovascular exam: Present regular rate, normal rhythm and normal heart sounds Abdominal Exam Abdominal exam: Present soft; Absent distention, tenderness, guarding, rebound or rigidity Extremities Exam Extremities exam: Present normal inspection, full ROM and normal capillary refill; Absent tenderness or calf tenderness Back Exam Back exam: Present normal inspection and full ROM; Absent tenderness Neurological Exam Neurological exam: Present alert and oriented X3 Psychiatric Psychiatric exam: Present normal affect and normal mood Skin Skin exam: Present warm, dry, intact and normal color Lymphatic Lymphatic Findings: no adenopathy Medical Decision Making Medical Records Medical records reviewed: No I reviewed the patient's medical records. Screening: Per USPSTF and CDC recommendations, given the prevalence of disease in our region, it is our hospital?s policy to screen for HIV and viral Hepatitis for all patients aged 18 and over and those with ongoing risk factors. Isaias Inquiry Pt receiving controlled substance: No
[2024-10-13 13:36] VITALS: BP 106/74; PULSE 68; RESP 18; TEMP 36.9; O2SAT 96; BMI 34.4
[2024-10-13 14:45] VITALS: BP 106/74; PULSE 68; RESP 18; TEMP 36.9
== END 2024-10-13 14:53 | disposition home or self-care (01) ==
PROVIDERS: Emergency Provider Nurse Practitioner Family; PCP Physician Assistant
DX: J32.9 Chronic sinusitis, unspecified (principal); J34.89 Other specified disorders of nose and nasal sinuses; R63.8 Other symptoms and signs concerning food and fluid intake
CPT/HCPCS: 99212; G0381